=== PATIENT | male | born 1945 | race Caucasian/White ===

== ENCOUNTER 2016-08-01 17:20 | Inpatient (IN) | payer MEDICARE, OTHER ==
[~2016-08-01] VITALS: Ht 188 cm; Wt 105.7 kg
[~2016-08-01 17:20] MED LIST: AMLO5TAB2 PO; ANTI1CAP PO; ASPI81TA50 PO; CARV3.122 PO; CARV6.252 PO; CLOP75TA PO; DABI150C PO; FERR325T20 PO; FURO40TA6 PO; GABA300C10 PO; GLUC1500 PO; HYDR1POW19 PO; HYDR25TA6 PO; ISOS30TA8 PO; LISI40TA PO; NIAC500C3 PO; POTA20TA14 PO; PRAV80TA2 PO; RIVA20TA PO; [UNRECOGNIZED DRUG - OTHER] PO
[2016-08-01] MEDS ORDERED: ASPI-515 PO (17:38)
[2016-08-01] MEDS ORDERED: LORazepam 2 MG/ML, 1ML ONE (17:47)
[2016-08-01] MEDS ORDERED: LORazepam 2 MG/ML, 1ML IVPush ONE (18:00)
[2016-08-01 19:21] LABS: BLOOD UREA NITROGEN 44 mg/dL (7-18)
[2016-08-01 19:29] LABS: ABG COLLECTION SITE RIGHT RADIAL; COLLATERAL CIRCULATION TESTING NORMAL
[2016-08-01 19:29] LABS: IS PT STATUS REG ER OR PRE ER? YES
[2016-08-01] MEDS ORDERED: NITROGLYCERIN OINT 2%, 1GM TP ONE ×2 (19:30→19:33)
[2016-08-01] MEDS ORDERED: ONDANSETRON 2MG/ML, 2ML ONE (19:56)
[2016-08-01] MEDS ORDERED: MORPHINE SULFATE 4 MG/ML, 1ML ONE (19:56)
[2016-08-01] MEDS ORDERED: ONDANSETRON 2MG/ML, 2ML IVPush ONE (20:00)
[2016-08-01] MEDS ORDERED: MORPHINE SULFATE 4 MG/ML, 1ML IVPush PRN (20:00)
[2016-08-01] MEDS ORDERED: SODIUM CHLORIDE FLUSH 10ML SYR IVF PRN (20:30)
[2016-08-01] MEDS ORDERED: ACETAMINOPHEN 325 MG TABLET PO PRN (23:00)
[2016-08-01] MEDS ORDERED: ONDANSETRON 2MG/ML, 2ML IVP PRN (23:00)
[2016-08-01] MEDS ORDERED: BISACODYL 10 MG SUPP PR PRN (23:00)
[2016-08-01] MEDS ORDERED: methylPREDNISolone SOD SUCC 125 MG/2 ML ONE (23:15)
[2016-08-01] MEDS: methylPREDNISolone SOD SUCC 125 MG/2 ML IVPush SCH (23:22)
[2016-08-01] MEDS ORDERED: MAGNESIUM SULFATE PMX 2GM/50ML 50 ML IV ONE (23:30)
[2016-08-01] MEDS ORDERED: PHARMACY MAY ADJ FOR RENAL FX MC PRN (23:30)
[2016-08-01 23:37] LABS: IS PT STATUS REG ER OR PRE ER? YES
[2016-08-02] MEDS: NICOTINE 21 MG/24 HR PATCH.TD24 TD SCH ×2 (01:07→20:50)
[2016-08-02] MEDS ORDERED: ALBUTEROL/IPRATROPIUM 2.5MG/0.5MG, 3 ML NPPB PRN (01:30)
[2016-08-02 02:11] LABS: ABG COLLECTION SITE RIGHT BRACHIAL
[2016-08-02 05:12] LABS: ABG COLLECTION SITE LEFT RADIAL; COLLATERAL CIRCULATION TESTING NORMAL
[2016-08-02 05:23] LABS: BLOOD UREA NITROGEN 46 mg/dL (7-18)
[2016-08-02 05:29] LABS: ASPARTATE AMINO TRANSFERASE 90 U/L (15-37)
[2016-08-02] MEDS ORDERED: methylPREDNISolone SOD SUCC 125 MG/2 ML ONE (05:37)
[2016-08-02] MEDS: methylPREDNISolone SOD SUCC 125 MG/2 ML IVPush SCH ×4 (05:40→23:31)
[2016-08-02] MEDS ORDERED: HYDROcodone/APAP 5/325 TABLET ONE (05:46)
[2016-08-02] MEDS: HYDROcodone/APAP 5/325 TABLET PO PRN ×3 (05:48→17:15)
[2016-08-02 05:55] LABS: ANISOCYTOSIS 1+
[2016-08-02 06:00] LABS: POIKILOCYTOSIS 1+; SCHISTOCYTES 1+
[2016-08-02 06:01] LABS: OVALOCYTES 1+
[2016-08-02 06:02] LABS: IS PT STATUS REG ER OR PRE ER? YES
[2016-08-02 08:39] VITALS: BP 116/66
[2016-08-02] MEDS ORDERED: DOCUSATE 100 MG CAPSULE PO PRN (09:00)
[2016-08-02] MEDS ORDERED: POLYETHYLENE GLYCOL 17 GM PACKET PO PRN (09:00)
[2016-08-02] MEDS ORDERED: FUROSEMIDE 40 MG TABLET PO SCH (10:00)
[2016-08-02] MEDS ORDERED: MORPHINE SULFATE 4 MG/ML, 1ML IVPush PRN ×5 (10:00→14:00)
[2016-08-02] MEDS: ALBUTEROL/IPRATROPIUM 2.5MG/0.5MG, 3 ML NPPB SCH ×3 (11:00→18:56)
[2016-08-02] MEDS: GABAPENTIN 300 MG CAPSULE PO SCH ×3 (11:26→20:50)
[2016-08-02] MEDS: ASPIRIN 81 MG TABLET EC PO SCH (11:26)
[2016-08-02] MEDS: CARVEDILOL 6.25 MG TABLET PO SCH ×2 (11:26→20:50)
[2016-08-02] MEDS: INSULIN ASPART 100 UNITS/ML, PEN SQ-INSULIN SCH ×3 (12:31→20:49)
[2016-08-02 13:00] VITALS: BP 126/81
[2016-08-02 13:37] VITALS: BP 131/61
[2016-08-02] MEDS ORDERED: SODIUM POLYSTYRENE SULFONATE ORAL SUSP PO ONE (15:30)
[2016-08-02 16:32] LABS: BLOOD UREA NITROGEN 48 mg/dL (7-18)
[2016-08-02] MEDS ORDERED: RIVAROXABAN 15 MG TABLET PO SCH (17:00)
[2016-08-02 19:30] VITALS: BP 141/69
[2016-08-02] MEDS: FUROSEMIDE 20 MG/2 ML IV SCH (20:48)
[2016-08-03 01:30] VITALS: BP 126/65
[2016-08-03] MEDS: methylPREDNISolone SOD SUCC 125 MG/2 ML IVPush SCH ×2 (05:51→11:19)
[2016-08-03 06:19] LABS: ASPARTATE AMINO TRANSFERASE 21 U/L (15-37); BLOOD UREA NITROGEN 54 mg/dL (7-18)
[2016-08-03 06:26] LABS: IS PT STATUS REG ER OR PRE ER? NO
[2016-08-03 06:53] LABS: ANISOCYTOSIS 1+
[2016-08-03 06:54] LABS: ACANTHOCYTES 1+; OVALOCYTES 1+; POIKILOCYTOSIS 1+
[2016-08-03] MEDS: ALBUTEROL/IPRATROPIUM 2.5MG/0.5MG, 3 ML NPPB SCH ×3 (07:10→15:10)
[2016-08-03 07:55] VITALS: BP 154/69
[2016-08-03] MEDS ORDERED: INSULIN DETEMIR 100 UNITS/ML, PEN SQ-INSULIN SCH (08:00)
[2016-08-03] MEDS: INSULIN ASPART 100 UNITS/ML, PEN SQ-INSULIN SCH ×2 (08:13→11:14)
[2016-08-03] MEDS: FUROSEMIDE 20 MG/2 ML IV SCH (08:13)
[2016-08-03] MEDS: GABAPENTIN 300 MG CAPSULE PO SCH (08:14)
[2016-08-03] MEDS: ASPIRIN 81 MG TABLET EC PO SCH (08:14)
[2016-08-03] MEDS: CARVEDILOL 6.25 MG TABLET PO SCH (08:14)
[2016-08-03] MEDS ORDERED: REGADENOSON 0.4 MG/5 ML SYRINGE ONE (08:21)
[2016-08-03 13:41] VITALS: BP 149/76
[2016-08-03] MEDS ORDERED: RIVA15TA PO (14:25)
[2016-08-03] MEDS ORDERED: HYDR-3240 PO (16:38)
[2016-08-03] MEDS ORDERED: PRED20TA PO (17:57)
== END 2016-08-03 17:00 | disposition home or self-care (01) | DRG 291 ==
LOC: ED 18:41 → EDIP 20:23 → 5SO 08-02 08:23 → DCLOUNGE 08-03 16:35
PROVIDERS: ADMIT Internal Medicine; ATTEND Internal Medicine
PROC: 5A09457 Assistance with Respiratory Ventilation, 24-96 Consecutive Hours, Continuous Positive Airway Pressure (ICD-10-PCS; principal; 2016-08-01)
DX: I13.0 Hypertensive heart and chronic kidney disease with heart failure and stage 1 through stage 4 chronic kidney disease, or unspecified chronic kidney disease (principal); J96.01 Acute respiratory failure with hypoxia; I50.21 Acute systolic (congestive) heart failure; J18.9 Pneumonia, unspecified organism; J44.1 Chronic obstructive pulmonary disease with (acute) exacerbation; E87.2 Acidosis; D68.69 Other thrombophilia; N18.4 Chronic kidney disease, stage 4 (severe); E44.1 Mild protein-calorie malnutrition; J44.0 Chronic obstructive pulmonary disease with (acute) lower respiratory infection; R17 Unspecified jaundice; D69.6 Thrombocytopenia, unspecified; E11.21 Type 2 diabetes mellitus with diabetic nephropathy; E11.22 Type 2 diabetes mellitus with diabetic chronic kidney disease; E11.65 Type 2 diabetes mellitus with hyperglycemia; Z68.29 Body mass index [BMI] 29.0-29.9, adult; E78.5 Hyperlipidemia, unspecified; I25.10 Atherosclerotic heart disease of native coronary artery without angina pectoris; I25.5 Ischemic cardiomyopathy; I34.0 Nonrheumatic mitral (valve) insufficiency; I35.0 Nonrheumatic aortic (valve) stenosis; E11.51 Type 2 diabetes mellitus with diabetic peripheral angiopathy without gangrene; I48.2 Chronic atrial fibrillation; K21.9 Gastro-esophageal reflux disease without esophagitis; W01.0XXA Fall on same level from slipping, tripping and stumbling without subsequent striking against object, initial encounter; I25.2 Old myocardial infarction; Y93.89 Activity, other specified; Y92.89 Other specified places as the place of occurrence of the external cause; Z79.01 Long term (current) use of anticoagulants; Z90.49 Acquired absence of other specified parts of digestive tract; Z98.52 Vasectomy status; Z88.8 Allergy status to other drugs, medicaments and biological substances; Z87.891 Personal history of nicotine dependence; I70.219 Atherosclerosis of native arteries of extremities with intermittent claudication, unspecified extremity; D64.9 Anemia, unspecified; N50.1 Vascular disorders of male genital organs; T45.515A Adverse effect of anticoagulants, initial encounter
CPT/HCPCS: 36415; 36600; 71010; 71250; 72128; 76770; 78452; 80048; 80053; 80076; 82040; 82306; 82550; 82553; 82803; 82962; 83735; 83880; 83935; 84100; 84300; 84484; 85025; 85610; 85730; 93005; 93017; 93306; 93970; 94640; J1815; J2405; J2785; J7620; A9502; C9898; J1940; J2060; J2930; J3475

== ENCOUNTER → 2016-12-15 | Outpatient (CLI) | payer MEDICARE, OTHER ==
[~2016-12-15] MED LIST changes: +ASPI-515 PO; +FERR325T18 PO; -FERR325T20 PO; +HYDR-3240 PO; +PRED20TA PO; +RIVA15TA PO
[2016-12-15 13:21] LABS: HEMATOCRIT 36.5 % (39.2-51.8); HEMOGLOBIN 12.1 g/dL (13.7-18.0); WHITE BLOOD COUNT 6.7 x10^3/uL (3.4-10)
[2016-12-15 13:22] LABS: DIFF TOTAL CELLS COUNTED 100 CELL DIFF
[2016-12-15 13:50] LABS: ANISOCYTOSIS 1+; POIKILOCYTOSIS 1+; VERIFY COUNTS? YES
== END | disposition home or self-care (01) ==
LOC: CFH 07:34
PROVIDERS: ATTEND Nurse Practitioner Family
DX: I25.10 Atherosclerotic heart disease of native coronary artery without angina pectoris (principal); I10 Essential (primary) hypertension; I70.203 Unspecified atherosclerosis of native arteries of extremities, bilateral legs; I48.0 Paroxysmal atrial fibrillation
CPT/HCPCS: 36415; 85025

== ENCOUNTER 2017-03-05 15:04 | Inpatient (IN) | payer MEDICARE, OTHER ==
[~2017-03-05] VITALS: Ht 188 cm; Wt 92.4 kg
[2017-03-05 15:50] LABS: HEMATOCRIT 29.5 % (39.2-51.8); HEMOGLOBIN 9.6 g/dL (13.7-18.0); WHITE BLOOD COUNT 10.5 x10^3/uL (3.4-10)
[2017-03-05 15:58] LABS: BLOOD UREA NITROGEN 55 mg/dL (7-18)
[2017-03-05 16:02] LABS: IS PT STATUS REG ER OR PRE ER? YES
[2017-03-05] MEDS ORDERED: POTA20TA14 PO (16:14)
[2017-03-05] MEDS ORDERED: FUROSEMIDE 40 MG/4 ML IV ONE (17:30)
[2017-03-05] MEDS ORDERED: AZITHROMYCIN 500 MG in SODIUM CHLORIDE 0.9% 250 ML IV ONE (17:30)
[2017-03-05] MEDS ORDERED: CEFTRIAXONE PMX 1GM/50ML 50 ML IV ONE (17:30)
[2017-03-05] MEDS ORDERED: CEFTRIAXONE PMX 1GM/50ML 50 ML ONE (17:31)
[2017-03-05] MEDS ORDERED: FUROSEMIDE 40 MG/4 ML ONE (17:31)
[2017-03-05 17:52] LABS: RAPID INFLUENZA A Negative (Negative); RAPID INFLUENZA B Negative (Negative)
[2017-03-05] MEDS: CEFTRIAXONE PMX 1GM/50ML 50 ML IV SCH (19:25)
[2017-03-05] MEDS: AZITHROMYCIN 500 MG in SODIUM CHLORIDE 0.9% 250 ML IV SCH (19:26)
[2017-03-05] MEDS ORDERED: methylPREDNISolone SOD SUCC 125 MG/2 ML ONE (19:27)
[2017-03-05] MEDS ORDERED: GUAIFENESIN/DM 200-20MG, 10ML UDC PO PRN (19:30)
[2017-03-05] MEDS ORDERED: BISACODYL 10 MG SUPP PR PRN (19:30)
[2017-03-05] MEDS ORDERED: MAGNESIUM SULFATE PMX 2GM/50ML 50 ML IV ONE (19:30)
[2017-03-05] MEDS ORDERED: HYDROcodone/APAP 5/325 TABLET PO PRN (19:30)
[2017-03-05] MEDS ORDERED: POLYETHYLENE GLYCOL 17 GM PACKET PO PRN (19:30)
[2017-03-05] MEDS ORDERED: hydrALAzine 20 MG/ML, 1ML IVPush PRN (19:30)
[2017-03-05] MEDS ORDERED: ONDANSETRON 2MG/ML, 2ML IVPush PRN (19:30)
[2017-03-05] MEDS ORDERED: methylPREDNISolone SOD SUCC 125 MG/2 ML IVPush ONE (19:30)
[2017-03-05] MEDS ORDERED: ACETAMINOPHEN 325 MG TABLET PO PRN (19:30)
[2017-03-05] MEDS ORDERED: TEMPLATE NON-FORMULARY MED. (Glucosamine Hcl** 1,500 MG) PO SCH (21:00)
[2017-03-05] MEDS: methylPREDNISolone SOD SUCC 125 MG/2 ML IVPush SCH (22:15)
[2017-03-05] MEDS: SODIUM CHLORIDE FLUSH 10ML SYR IVF SCH (22:18)
[2017-03-05] MEDS: NICOTINE 21 MG/24 HR PATCH.TD24 TD SCH (22:18)
[2017-03-05] MEDS: CARVEDILOL 6.25 MG TABLET PO SCH (22:18)
[2017-03-05] MEDS: GABAPENTIN 300 MG CAPSULE PO SCH (22:19)
[2017-03-05] MEDS: AMLODIPINE 5 MG TABLET PO SCH (22:19)
[2017-03-05 22:33] LABS: IS PT STATUS REG ER OR PRE ER? NO
[2017-03-05 23:58] VITALS: BP 136/72
[2017-03-06] MEDS: methylPREDNISolone SOD SUCC 125 MG/2 ML IVPush SCH ×4 (01:30→20:03)
[2017-03-06 01:41] VITALS: BP 110/58
[2017-03-06 04:07] LABS: ASPARTATE AMINO TRANSFERASE 7 U/L (15-37); BLOOD UREA NITROGEN 60 mg/dL (7-18)
[2017-03-06 04:09] LABS: HEMATOCRIT 26.6 % (39.2-51.8); HEMOGLOBIN 8.8 g/dL (13.7-18.0); WHITE BLOOD COUNT 7.1 x10^3/uL (3.4-10)
[2017-03-06 04:10] LABS: IS PT STATUS REG ER OR PRE ER? NO
[2017-03-06 04:37] LABS: ACANTHOCYTES 1+; ANISOCYTOSIS 1+; OVALOCYTES 1+; POIKILOCYTOSIS 1+
[2017-03-06 07:20] VITALS: BP 123/67
[2017-03-06] MEDS ORDERED: FUROSEMIDE 20 MG/2 ML IV SCH (07:30)
[2017-03-06] MEDS: LISINOPRIL 20 MG TABLET PO SCH (09:00)
[2017-03-06] MEDS: SENNA/DOCUSATE TABLET PO SCH (09:00)
[2017-03-06] MEDS: MULTIVITAMINS/MINERALS TABLET PO SCH (09:00)
[2017-03-06] MEDS: AMLODIPINE 5 MG TABLET PO SCH ×2 (09:00→20:08)
[2017-03-06] MEDS: CARVEDILOL 6.25 MG TABLET PO SCH ×2 (09:00→20:07)
[2017-03-06] MEDS: GABAPENTIN 300 MG CAPSULE PO SCH ×3 (09:00→20:07)
[2017-03-06] MEDS: RIVAROXABAN 15 MG TABLET PO SCH (09:00)
[2017-03-06] MEDS: HYDROCHLOROTHIAZIDE 25 MG TABLET PO SCH (09:00)
[2017-03-06] MEDS: ASPIRIN 81 MG TABLET EC PO SCH (09:00)
[2017-03-06] MEDS: SODIUM CHLORIDE FLUSH 10ML SYR IVF SCH ×2 (09:00→20:07)
[2017-03-06 14:30] VITALS: BP 113/60
[2017-03-06] MEDS: INSULIN ASPART 100 UNITS/ML, PEN SQ-INSULIN SCH ×2 (16:00→20:24)
[2017-03-06] MEDS: FUROSEMIDE 20 MG TABLET PO SCH (17:00)
[2017-03-06] MEDS: AZITHROMYCIN 500 MG in SODIUM CHLORIDE 0.9% 250 ML IV SCH (20:02)
[2017-03-06] MEDS: NICOTINE 21 MG/24 HR PATCH.TD24 TD SCH (20:08)
[2017-03-06 20:13] VITALS: BP 102/56
[2017-03-06] MEDS: CEFTRIAXONE PMX 1GM/50ML 50 ML IV SCH (21:22)
[2017-03-07] MEDS: methylPREDNISolone SOD SUCC 125 MG/2 ML IVPush SCH ×2 (01:49→09:46)
[2017-03-07 02:00] VITALS: BP 90/53
[2017-03-07 08:20] VITALS: BP 99/51
[2017-03-07 08:23] LABS: HEMATOCRIT 26.8 % (39.2-51.8); HEMOGLOBIN 8.8 g/dL (13.7-18.0); WHITE BLOOD COUNT 10.7 x10^3/uL (3.4-10)
[2017-03-07 08:24] LABS: ASPARTATE AMINO TRANSFERASE 6 U/L (15-37); BLOOD UREA NITROGEN 75 mg/dL (7-18)
[2017-03-07 09:16] LABS: ANISOCYTOSIS 1+; OVALOCYTES 1+; POIKILOCYTOSIS 1+; SCHISTOCYTES 1+
[2017-03-07 09:18] LABS: ACANTHOCYTES 1+; ECHINOCYTES 1+; POLYCHROMASIA 1+
[2017-03-07] MEDS: INSULIN ASPART 100 UNITS/ML, PEN SQ-INSULIN SCH ×4 (09:45→20:37)
[2017-03-07] MEDS: SODIUM CHLORIDE FLUSH 10ML SYR IVF SCH ×2 (09:46→20:38)
[2017-03-07] MEDS: FUROSEMIDE 20 MG TABLET PO SCH ×2 (09:46→17:00)
[2017-03-07] MEDS: ASPIRIN 81 MG TABLET EC PO SCH (09:47)
[2017-03-07] MEDS: CARVEDILOL 6.25 MG TABLET PO SCH ×3 (09:47→20:56)
[2017-03-07] MEDS: HYDROCHLOROTHIAZIDE 25 MG TABLET PO SCH (09:47)
[2017-03-07] MEDS: SENNA/DOCUSATE TABLET PO SCH (09:48)
[2017-03-07] MEDS: MULTIVITAMINS/MINERALS TABLET PO SCH (09:48)
[2017-03-07] MEDS: RIVAROXABAN 15 MG TABLET PO SCH (09:48)
[2017-03-07] MEDS: AMLODIPINE 5 MG TABLET PO SCH ×3 (09:48→20:56)
[2017-03-07] MEDS: LISINOPRIL 20 MG TABLET PO SCH (09:48)
[2017-03-07] MEDS: GABAPENTIN 300 MG CAPSULE PO SCH ×3 (09:48→20:38)
[2017-03-07 12:38] LABS: OCCBLD OBC PASS
[2017-03-07 14:30] VITALS: BP 97/60
[2017-03-07 19:25] VITALS: BP 91/48
[2017-03-07] MEDS: AZITHROMYCIN 500 MG in SODIUM CHLORIDE 0.9% 250 ML IV SCH (19:33)
[2017-03-07] MEDS: NICOTINE 21 MG/24 HR PATCH.TD24 TD SCH (20:37)
[2017-03-07] MEDS: CEFTRIAXONE PMX 1GM/50ML 50 ML IV SCH (20:38)
[2017-03-07 20:55] VITALS: BP 93/53
[2017-03-08 00:51] VITALS: BP 107/92
[2017-03-08 05:09] LABS: HEMATOCRIT 23.8 % (39.2-51.8); WHITE BLOOD COUNT 10.6 x10^3/uL (3.4-10)
[2017-03-08 05:34] LABS: BLOOD UREA NITROGEN 92 mg/dL (7-18)
[2017-03-08 08:02] VITALS: BP 121/61
[2017-03-08] MEDS: SENNA/DOCUSATE TABLET PO SCH (09:00)
[2017-03-08] MEDS: RIVAROXABAN 15 MG TABLET PO SCH (09:02)
[2017-03-08] MEDS: INSULIN ASPART 100 UNITS/ML, PEN SQ-INSULIN SCH ×2 (09:02→11:39)
[2017-03-08] MEDS: AMLODIPINE 5 MG TABLET PO SCH (09:04)
[2017-03-08] MEDS: GABAPENTIN 300 MG CAPSULE PO SCH (09:04)
[2017-03-08] MEDS: MULTIVITAMINS/MINERALS TABLET PO SCH (09:04)
[2017-03-08] MEDS: LISINOPRIL 20 MG TABLET PO SCH (09:04)
[2017-03-08] MEDS: CARVEDILOL 6.25 MG TABLET PO SCH (09:05)
[2017-03-08] MEDS: HYDROCHLOROTHIAZIDE 25 MG TABLET PO SCH (09:05)
[2017-03-08] MEDS: ASPIRIN 81 MG TABLET EC PO SCH (09:05)
[2017-03-08] MEDS: FUROSEMIDE 20 MG TABLET PO SCH (09:06)
[2017-03-08] MEDS: SODIUM CHLORIDE FLUSH 10ML SYR IVF SCH (09:11)
[2017-03-08] MEDS ORDERED: PRED20TA PO (12:38)
[2017-03-08 13:46] VITALS: BP 119/59
== END 2017-03-08 15:00 | disposition home or self-care (01) | DRG 291 ==
LOC: ED 18:08 → EDIP 18:30 → 4WST 20:58 → DCLOUNGE 03-08 14:40
PROVIDERS: ADMIT Internal Medicine; ATTEND Internal Medicine
DX: I13.0 Hypertensive heart and chronic kidney disease with heart failure and stage 1 through stage 4 chronic kidney disease, or unspecified chronic kidney disease (principal); I50.43 Acute on chronic combined systolic (congestive) and diastolic (congestive) heart failure; J96.01 Acute respiratory failure with hypoxia; D68.69 Other thrombophilia; E11.40 Type 2 diabetes mellitus with diabetic neuropathy, unspecified; E11.22 Type 2 diabetes mellitus with diabetic chronic kidney disease; N18.3 Chronic kidney disease, stage 3 (moderate); E11.51 Type 2 diabetes mellitus with diabetic peripheral angiopathy without gangrene; J44.1 Chronic obstructive pulmonary disease with (acute) exacerbation; E44.1 Mild protein-calorie malnutrition; I38 Endocarditis, valve unspecified; D64.9 Anemia, unspecified; E78.5 Hyperlipidemia, unspecified; I25.10 Atherosclerotic heart disease of native coronary artery without angina pectoris; E87.5 Hyperkalemia; I07.1 Rheumatic tricuspid insufficiency; I25.2 Old myocardial infarction; I48.2 Chronic atrial fibrillation; Z79.01 Long term (current) use of anticoagulants; Z79.84 Long term (current) use of oral hypoglycemic drugs; Z87.891 Personal history of nicotine dependence; J20.8 Acute bronchitis due to other specified organisms; Z68.26 Body mass index [BMI] 26.0-26.9, adult
CPT/HCPCS: 36415; 71020; 80048; 80053; 81003; 82040; 82272; 82962; 83036; 83605; 83880; 84145; 84484; 85025; 87040; 87070; 87205; 87400; 93005; 93306; 96365; 96366; 96368; 96375; J0456; J0696; J1815; J1940; J2930; J3475; J7050; J7512

== ENCOUNTER → 2017-11-23 | Outpatient (CLI) | payer MEDICARE, OTHER ==
[~2017-11-23] MED LIST changes: -GLUC1500 PO; +GLUC15006 PO
[2017-11-23 12:50] LABS: ALBUMIN 3.7 g/dL (3.4-5.0); ANION GAP 8 mmol/L (5-15); CALCIUM 8.6 mg/dL (8.5-10.1); CHLORIDE 110 mmol/L (98-107)
[2017-11-23 12:54] LABS: ALANINE AMINOTRANSFERASE 15 U/L (12-78); ALKALINE PHOSPHATASE 103 U/L (45-117); BILIRUBIN,TOTAL 1.2 mg/dL (0.2-1.0); CHOL/HDL RATIO 2.1; CHOLESTEROL, TOTAL 104 mg/dL (140-239); CREATININE 1.45 mg/dL (0.7-1.3); HDL CHOL % 47 % (26-37); HDL CHOLESTEROL (DIRECT) 49 mg/dL (40-60); LDL CHOLESTEROL,CALCULATED 46 mg/dL (54-169); LDL/HDL RATIO 0.9 (0.5-3.0); TOTAL PROTEIN 6.5 g/dL (6.4-8.2); TRIGLYCERIDES 47 mg/dL (50-200); VLDL CHOLESTEROL 9 mg/dL (0-25)
== END | disposition home or self-care (01) ==
LOC: CFH 10:08
PROVIDERS: ATTEND Internal Medicine Cardiovascular Disease
DX: E11.21 Type 2 diabetes mellitus with diabetic nephropathy (principal); I11.0 Hypertensive heart disease with heart failure; I50.9 Heart failure, unspecified; I73.9 Peripheral vascular disease, unspecified; D64.9 Anemia, unspecified; J44.9 Chronic obstructive pulmonary disease, unspecified; Z87.891 Personal history of nicotine dependence
CPT/HCPCS: 36415; 80053; 80061

== ENCOUNTER 2018-07-11 14:18 | Inpatient (IN) | payer MEDICARE ==
[~2018-07-11] VITALS: Ht 188 cm; Wt 87.0 kg
[~2018-07-11 14:18] MED LIST changes: +AMLO-150 PO; -AMLO5TAB2 PO
--- NOTE | 2018-07-11 14:40 | NUR ---
PT TO ED FOR SOB WHILE LYING DOWN AND INCREASED LEG SWELLING DURING RECENT ROAD TRIP. PT THINKS HE'S IN AFIB AND IS VERY COLD. NO FEVER NOTED. CONNECTED TO ALL MONITORS. VSS. EDMD ASSESSMENT COMPLETE. AWAITING ORDERS.
[2018-07-11] MEDS ORDERED: CEFTRIAXONE PMX 1GM/50ML 50 ML IVPB ONE (15:00)
[2018-07-11] MEDS ORDERED: AZITHROMYCIN 500 MG in SODIUM CHLORIDE 0.9% 250 ML IVPB ONE (15:00)
--- NOTE | 2018-07-11 15:20 | NUR ---
UNABLE TO OBTAIN BLOOD FOR LAB/MEDS YET. TO USE ULTRASOUND SHORTLY
[2018-07-11] MEDS ORDERED: CEFTRIAXONE PMX 1GM/50ML 50 ML ONE (15:25)
[2018-07-11 15:33] LABS: INTERNATIONAL NORMALIZED RATIO 4.06 (0.93-1.1); PROTHROMBIN TIME 40.4 Seconds (9.6-11.5)
[2018-07-11 15:34] LABS: ALBUMIN 3.7 g/dL (3.4-5.0); ANION GAP 6 mmol/L (5-15); CALCIUM 8.4 mg/dL (8.5-10.1); CHLORIDE 105 mmol/L (98-107); CREATININE 1.55 mg/dL (0.7-1.3)
[2018-07-11 15:38] LABS: TROPONIN I 0.036 ng/mL (0.000-0.045)
[2018-07-11 15:44] LABS: MEAN CORPUSCULAR HEMOGLOBIN 28.5 pg (27.5-34.5); MEAN CORPUSCULAR HGB CONC 32.5 g/dL (33.2-36.2); MEAN CORPUSCULAR VOLUME 87.6 fL (81-97); MEAN PLATELET VOLUME 11.6 fL (7.4-10.4); PLATELET COUNT 122 x10^3/uL (130-400); RED BLOOD COUNT 5.03 x10^6/uL (4.38-5.82); RED CELL DISTRIBUTION WIDTH 21.1 % (9.4-14.8)
[2018-07-11 16:01] LABS: MD YES
--- NOTE | 2018-07-11 16:02 | NUR ---
2ND BLOOD CULTURE OBTAINED W/ PIV PLACEMENT AT [id number]
[2018-07-11 16:04] LABS: BAND#(MANUAL) 3.74 x10^3/uL; BANDS%(MANUAL) 18 % (0-7); LYMPH#(MANUAL) 0.83 x10^3/uL (1-3.4); LYMPHS% (MANUAL) 4 % (22-44); METAMYELOCYTES# (MANUAL) 0.21 x10^3/uL (0-0); METAMYELOCYTES% (MANUAL) 1 % (0-1); MONOS#(MANUAL) 1.25 x10^3/uL (0.3-2.7); MONOS% (MANUAL) 6 % (2-9); SEG#(MANUAL) 14.77 x10^3/uL (1.8-6.8); SEGS% (MANUAL) 71 % (42-75)
[2018-07-11 16:05] LABS: ANISOCYTOSIS 1+
[2018-07-11 16:06] LABS: OVALOCYTES 1+
[2018-07-11 16:07] LABS: <PLATELET ESTIMATE> DECREASED; <PLT MORPHOLOGY> NORMAL PLT MORPH; ECHINOCYTES 1+; SCHISTOCYTES 1+
[2018-07-11] MEDS ORDERED: WARF5TAB PO (16:21)
[2018-07-11] MEDS ORDERED: WARF7.5T PO (16:21)
--- NOTE | 2018-07-11 16:31 | NUR ---
ABX ADMINISTERED PER [facility] COMPLETED WELL: (TAKES 5MG OF COUMADIN ON WEDNESDAY & 7.5MG EVERY OTHER DAY-TAKES DOSE AT NIGHT. LAST DOSE 07/10. ALSO TAKES LASIX AND POTASSIUM EVERY THIRD DAY (LAST DOSE 07/07/18)-ADDITIONAL MED RECC SELF EXPLANITORY. POX 88-90%-PLACED ON 2L NC CONTINUES TO SPIT UP COPIOUS AMOUNT OF FROTHY SPUTUM SLIGHLY TINGED UPDATED ON POC REMAIN ON DISTRICT BRANCH MANAGER AT BEDSIDE CALL NAZARIO IN HAND/SIDE RAILS UP
[2018-07-11] MEDS ORDERED: hydrALAzine 20 MG/ML, 1ML IVPush PRN (17:00)
[2018-07-11] MEDS ORDERED: GUAIFENESIN/DM 200-20MG, 10ML UDC PO PRN (17:00)
[2018-07-11] MEDS ORDERED: HYDROcodone/APAP 5/325 TABLET PO PRN (17:00)
[2018-07-11] MEDS ORDERED: LABETALOL 5 MG/ML SYRINGE IVPush PRN (17:00)
[2018-07-11] MEDS ORDERED: GUAIFENESIN/COD200MG-20MG/10ML LIQUID PO PRN (17:00)
[2018-07-11] MEDS ORDERED: ZOLPIDEM 5MG TABLET PO PRN (17:00)
[2018-07-11] MEDS ORDERED: ONDANSETRON 2MG/ML, 2ML IVPush PRN (17:00)
[2018-07-11] MEDS ORDERED: BISACODYL 10 MG SUPP PR PRN (17:00)
[2018-07-11] MEDS ORDERED: DOCUSATE 100 MG CAPSULE PO PRN (17:00)
[2018-07-11] MEDS ORDERED: POLYETHYLENE GLYCOL 17 GM PACKET PO PRN (17:00)
[2018-07-11] MEDS ORDERED: ONDANSETRON ODT 4 MG PO PRN (17:00)
[2018-07-11] MEDS ORDERED: ACETAMINOPHEN 325 MG TABLET PO PRN (17:00)
[2018-07-11] MEDS ORDERED: SODIUM CHLORIDE FLUSH 10ML SYR IVF PRN (17:00)
--- NOTE | 2018-07-11 17:36 | NUR ---
POX 91-94%-ON 2L NC CONTINUES TO SPIT UP COPIOUS AMOUNT OF FROTHY SPUTUM SLIGHLY TINGED UPDATED ON POC-TO HOPEF[facility]Y [facility] INPATIENT ROOM SHORTLY REMAINS ON DIRECTOR OF REGULATORY AFFAIRS AT BEDSIDE CALL NAZARIO IN HAND/SIDE RAILS UP
[2018-07-11 17:43] LABS: FREE T4 (FREE THYROXINE) 1.35 ng/dL (0.76-1.46); TROPONIN I 0.038 ng/mL (0.000-0.045)
[2018-07-11 17:47] LABS: HEMOGLOBIN A1C 6.9 % (4.2-6.3)
[2018-07-11 17:49] LABS: THYROID STIMULATING HORMONE 0.514 mIU/L (0.358-3.740)
--- NOTE | 2018-07-11 18:45 | NUR ---
200ML OF DARK URINE VOIDED. CHARTED IN I/O TAB
[2018-07-11 19:05] VITALS: BP 104/61
[2018-07-11] MEDS: INSULIN LISPRO 100 UNITS/ML, PEN SQ-INSULIN SCH (20:36)
[2018-07-11] MEDS: CARVEDILOL 3.125 MG TABLET PO SCH (20:56)
[2018-07-11] MEDS: AMLODIPINE 5 MG TABLET PO SCH (20:56)
[2018-07-11] MEDS: methylPREDNISolone SOD SUCC 125 MG/2 ML IVPush SCH (20:56)
[2018-07-11] MEDS: GABAPENTIN 300 MG CAPSULE PO SCH (20:56)
[2018-07-11] MEDS ORDERED: TEMPLATE NON-FORMULARY MED. (Glucosamine Hcl** 1,500 MG) PO SCH (21:00)
[2018-07-12] MEDS ORDERED: ALBUTEROL SULFATE 2.5 MG/3 ML NPPB PRN
[2018-07-12 00:13] LABS: TROPONIN I 0.039 ng/mL (0.000-0.045)
[2018-07-12 00:20] VITALS: BP 116/62
[2018-07-12] MEDS: CEFTRIAXONE PMX 1GM/50ML 50 ML IV SCH ×2 (03:34→15:11)
[2018-07-12] MEDS: methylPREDNISolone SOD SUCC 125 MG/2 ML IVPush SCH ×4 (03:34→21:49)
[2018-07-12] MEDS: PANTOPROZOLE 40MG TABLET PO SCH (05:23)
[2018-07-12 05:53] LABS: ANION GAP 8 mmol/L (5-15); CALCIUM 7.7 mg/dL (8.5-10.1); CHLORIDE 107 mmol/L (98-107)
[2018-07-12 05:55] LABS: MEAN CORPUSCULAR HEMOGLOBIN 28.5 pg (27.5-34.5); MEAN CORPUSCULAR HGB CONC 33.1 g/dL (33.2-36.2); MEAN CORPUSCULAR VOLUME 86.3 fL (81-97); MEAN PLATELET VOLUME 12.3 fL (7.4-10.4); PLATELET COUNT 94 x10^3/uL (130-400); RED BLOOD COUNT 4.42 x10^6/uL (4.38-5.82); RED CELL DISTRIBUTION WIDTH 20.9 % (9.4-14.8)
[2018-07-12 05:57] LABS: CREATININE 1.46 mg/dL (0.7-1.3); HDL CHOLESTEROL (DIRECT) 36 mg/dL (40-60); TRIGLYCERIDES 40 mg/dL (50-200); VLDL CHOLESTEROL 8 mg/dL (0-25)
[2018-07-12 06:00] LABS: CHOL/HDL RATIO 1.4; CHOLESTEROL, TOTAL < 50 mg/dL (140-239); HDL CHOL % 0 % (26-37); LDL CHOLESTEROL,CALCULATED 6 mg/dL (54-169); LDL/HDL RATIO 0.2 (0.5-3.0)
[2018-07-12 06:41] LABS: MD YES
[2018-07-12 06:42] LABS: BAND#(MANUAL) 2.58 x10^3/uL; BANDS%(MANUAL) 12 % (0-7); LYMPH#(MANUAL) 0.65 x10^3/uL (1-3.4); LYMPHS% (MANUAL) 3 % (22-44); MONOS#(MANUAL) 0.65 x10^3/uL (0.3-2.7); MONOS% (MANUAL) 3 % (2-9); SEG#(MANUAL) 17.63 x10^3/uL (1.8-6.8); SEGS% (MANUAL) 82 % (42-75)
[2018-07-12 06:43] LABS: ANISOCYTOSIS 1+
[2018-07-12 06:44] LABS: ECHINOCYTES 1+; OVALOCYTES 1+; SCHISTOCYTES 1+
[2018-07-12 06:45] LABS: <PLATELET ESTIMATE> DECREASED; LARGE PLATELETS 1+
[2018-07-12 07:22] VITALS: BP 114/73
[2018-07-12] MEDS: CARVEDILOL 3.125 MG TABLET PO SCH ×2 (08:34→21:49)
[2018-07-12] MEDS: GABAPENTIN 300 MG CAPSULE PO SCH ×3 (08:42→21:49)
[2018-07-12] MEDS: AMLODIPINE 5 MG TABLET PO SCH ×2 (08:42→21:49)
[2018-07-12] MEDS: INSULIN LISPRO 100 UNITS/ML, PEN SQ-INSULIN SCH ×4 (08:43→21:50)
[2018-07-12] MEDS ORDERED: [UNRECOGNIZED DRUG - OTHER] PO SCH (09:00)
[2018-07-12 09:23] LABS: INTERNATIONAL NORMALIZED RATIO 4.63 (0.93-1.1); PROTHROMBIN TIME 45.8 Seconds (9.6-11.5)
[2018-07-12 12:32] VITALS: BP 112/51
[2018-07-12] MEDS: AZITHROMYCIN 500 MG in SODIUM CHLORIDE 0.9% 250 ML IV SCH (16:16)
[2018-07-12] MEDS: NICOTINE 21 MG/24 HR PATCH.TD24 TD SCH (16:16)
[2018-07-12 19:45] VITALS: BP 117/65
[2018-07-13 00:30] VITALS: BP 125/76
[2018-07-13] MEDS: CEFTRIAXONE PMX 1GM/50ML 50 ML IV SCH ×2 (02:38→15:50)
[2018-07-13] MEDS: methylPREDNISolone SOD SUCC 125 MG/2 ML IVPush SCH ×4 (02:45→21:08)
[2018-07-13] MEDS: PANTOPROZOLE 40MG TABLET PO SCH (05:31)
[2018-07-13 06:30] LABS: INTERNATIONAL NORMALIZED RATIO 3.11 (0.93-1.1); PROTHROMBIN TIME 31.3 Seconds (9.6-11.5)
[2018-07-13 06:39] LABS: MEAN CORPUSCULAR HEMOGLOBIN 28.5 pg (27.5-34.5); MEAN CORPUSCULAR VOLUME 86.3 fL (81-97); RED BLOOD COUNT 4.23 x10^6/uL (4.38-5.82); RED CELL DISTRIBUTION WIDTH 21.6 % (9.4-14.8)
[2018-07-13 06:41] LABS: ANION GAP 7 mmol/L (5-15); CALCIUM 8.2 mg/dL (8.5-10.1); CHLORIDE 105 mmol/L (98-107)
[2018-07-13 06:43] LABS: CREATININE 1.62 mg/dL (0.7-1.3)
[2018-07-13 07:05] LABS: MEAN PLATELET VOLUME 12.9 fL (7.4-10.4); PLATELET COUNT 102 x10^3/uL (130-400)
[2018-07-13 07:20] LABS: BASOPHILS # (AUTO) 0.06 x10^3/uL (0-0.1); BASOPHILS % (AUTO) 0 % (0-1); EOSINOPHILS % (AUTO) 0 % (1-7); LYMPHOCYTES # (AUTO) 0.28 x10^3/uL (1-3.4); LYMPHOCYTES % (AUTO) 2 % (22-44); MD SCAN; MONOCYTES # (AUTO) 0.15 x10^3/uL (0.2-0.8); MONOCYTES % (AUTO) 1 % (2-9); NEUTROPHILS # (AUTO) 13.12 x10^3/uL (1.8-6.8); NEUTROPHILS % (AUTO) 96 % (42-75)
[2018-07-13 07:55] VITALS: BP 109/67
[2018-07-13] MEDS: INSULIN LISPRO 100 UNITS/ML, PEN SQ-INSULIN SCH ×4 (07:56→21:48)
[2018-07-13] MEDS: GABAPENTIN 300 MG CAPSULE PO SCH ×3 (09:44→21:09)
[2018-07-13] MEDS: AMLODIPINE 5 MG TABLET PO SCH ×2 (09:44→21:09)
[2018-07-13] MEDS: CARVEDILOL 3.125 MG TABLET PO SCH ×2 (09:45→21:09)
[2018-07-13 13:50] VITALS: BP 116/63
[2018-07-13] MEDS: AZITHROMYCIN 500 MG in SODIUM CHLORIDE 0.9% 250 ML IV SCH (16:44)
[2018-07-13] MEDS: NICOTINE 21 MG/24 HR PATCH.TD24 TD SCH (16:45)
[2018-07-13] MEDS ORDERED: WARFARIN 2.5 MG TABLET PO-COUM ONE (18:00)
[2018-07-13 18:35] VITALS: BP 105/63
[2018-07-14 00:35] VITALS: BP 131/78
[2018-07-14] MEDS: CEFTRIAXONE PMX 1GM/50ML 50 ML IV SCH (03:28)
[2018-07-14] MEDS: methylPREDNISolone SOD SUCC 125 MG/2 ML IVPush SCH ×2 (03:28→08:23)
[2018-07-14 06:13] LABS: INTERNATIONAL NORMALIZED RATIO 2.47 (0.93-1.1)
[2018-07-14] MEDS: PANTOPROZOLE 40MG TABLET PO SCH (06:19)
[2018-07-14 06:22] LABS: CALCIUM 8.3 mg/dL (8.5-10.1); CHLORIDE 103 mmol/L (98-107)
[2018-07-14 06:25] LABS: ANION GAP 8 mmol/L (5-15); CREATININE 1.75 mg/dL (0.7-1.3)
[2018-07-14 06:37] LABS: BASOPHILS % (AUTO) 0 % (0-1); EOSINOPHILS # (AUTO) 0.07 x10^3/uL (0-0.4); EOSINOPHILS % (AUTO) 1 % (1-7); LYMPHOCYTES # (AUTO) 0.35 x10^3/uL (1-3.4); LYMPHOCYTES % (AUTO) 4 % (22-44); MD SCAN; MEAN CORPUSCULAR HEMOGLOBIN 28.8 pg (27.5-34.5); MEAN CORPUSCULAR HGB CONC 33.3 g/dL (33.2-36.2); MEAN CORPUSCULAR VOLUME 86.4 fL (81-97); MEAN PLATELET VOLUME 12.1 fL (7.4-10.4); MONOCYTES # (AUTO) 0.11 x10^3/uL (0.2-0.8); MONOCYTES % (AUTO) 1 % (2-9); NEUTROPHILS # (AUTO) 7.95 x10^3/uL (1.8-6.8); NEUTROPHILS % (AUTO) 94 % (42-75); PLATELET COUNT 105 x10^3/uL (130-400); RED CELL DISTRIBUTION WIDTH 20.2 % (9.4-14.8)
[2018-07-14] MEDS: AMLODIPINE 5 MG TABLET PO SCH (08:23)
[2018-07-14] MEDS: INSULIN LISPRO 100 UNITS/ML, PEN SQ-INSULIN SCH ×2 (08:23→11:35)
[2018-07-14] MEDS: CARVEDILOL 3.125 MG TABLET PO SCH (08:23)
[2018-07-14] MEDS: GABAPENTIN 300 MG CAPSULE PO SCH (08:23)
[2018-07-14 08:29] VITALS: BP 123/53
[2018-07-14] MEDS ORDERED: AMOXICILLIN/CLAV 875-125MG TABLET PO SCH (09:00)
[2018-07-14] MEDS ORDERED: DOXYCYCLINE 100MG TABLET PO SCH (09:00)
[2018-07-14] MEDS ORDERED: DOXY100T PO (10:23)
[2018-07-14] MEDS ORDERED: FURO40TA6 PO (10:23)
[2018-07-14] MEDS ORDERED: AMOX1TAB12 PO (10:23)
[2018-07-14] MEDS ORDERED: ALBU90AE INH (10:29)
[2018-07-14] MEDS ORDERED: GUAI-103 PO (10:29)
[2018-07-14] MEDS ORDERED: WARFARIN 5 MG TABLET PO-COUM ONE (18:00)
== END 2018-07-14 12:40 | disposition home or self-care (01) | DRG 871 ==
LOC: ED 17:09 → EDIP 17:10 → 4WST 18:43 → EDIP 18:46 → 4WST 18:51 → DCLOUNGE 07-14 12:31
PROVIDERS: ADMIT Internal Medicine; ATTEND Internal Medicine
DX: A41.9 Sepsis, unspecified organism (principal); J15.9 Unspecified bacterial pneumonia; I13.0 Hypertensive heart and chronic kidney disease with heart failure and stage 1 through stage 4 chronic kidney disease, or unspecified chronic kidney disease; J44.0 Chronic obstructive pulmonary disease with (acute) lower respiratory infection; E87.1 Hypo-osmolality and hyponatremia; I50.22 Chronic systolic (congestive) heart failure; D64.9 Anemia, unspecified; D69.6 Thrombocytopenia, unspecified; E11.21 Type 2 diabetes mellitus with diabetic nephropathy; E11.22 Type 2 diabetes mellitus with diabetic chronic kidney disease; E11.40 Type 2 diabetes mellitus with diabetic neuropathy, unspecified; E11.51 Type 2 diabetes mellitus with diabetic peripheral angiopathy without gangrene; E78.5 Hyperlipidemia, unspecified; I25.10 Atherosclerotic heart disease of native coronary artery without angina pectoris; I48.91 Unspecified atrial fibrillation; N18.3 Chronic kidney disease, stage 3 (moderate); I25.2 Old myocardial infarction; Z79.01 Long term (current) use of anticoagulants; Z90.49 Acquired absence of other specified parts of digestive tract; Z79.899 Other long term (current) drug therapy; Z83.3 Family history of diabetes mellitus; Z98.52 Vasectomy status
CPT/HCPCS: 36415; 71045; 80048; 80061; 82040; 82962; 83036; 83605; 83690; 83735; 83880; 84439; 84443; 84484; 85025; 85610; 85730; 87040; 87070; 87205; 93005; 93306; 96365; 96375; G0378; J0456; J0696; J1815; J2930; J7050

== ENCOUNTER 2018-09-19 07:56 | Outpatient (CLI) | payer MEDICARE, OTHER ==
[~2018-09-19 07:56] MED LIST changes: +ALBU90AE INH; +AMOX1TAB12 PO; +DOXY100T PO; +GUAI-103 PO; +WARF5TAB PO; +WARF7.5T PO
[2018-09-19 10:31] LABS: ALANINE AMINOTRANSFERASE 17 U/L (12-78); ALBUMIN 3.9 g/dL (3.4-5.0); ANION GAP 7 mmol/L (5-15); CALCIUM 8.6 mg/dL (8.5-10.1); CHLORIDE 110 mmol/L (98-107)
[2018-09-19 10:34] LABS: ALKALINE PHOSPHATASE 130 U/L (45-117); BILIRUBIN,TOTAL 1.1 mg/dL (0.2-1.0); CHOL/HDL RATIO 1.5; CHOLESTEROL, TOTAL 92 mg/dL (140-239); CREATININE 1.63 mg/dL (0.7-1.3); HDL CHOL % 66 % (26-37); HDL CHOLESTEROL (DIRECT) 61 mg/dL (40-60); LDL CHOLESTEROL,CALCULATED 21 mg/dL (54-169); LDL/HDL RATIO 0.3 (0.5-3.0); TOTAL PROTEIN 7.2 g/dL (6.4-8.2); TRIGLYCERIDES 50 mg/dL (50-200); VLDL CHOLESTEROL 10 mg/dL (0-25)
== END 2018-09-19 23:59 | disposition home or self-care (01) ==
LOC: CVU 07:56
PROVIDERS: ATTEND Internal Medicine Cardiovascular Disease
DX: I65.23 Occlusion and stenosis of bilateral carotid arteries (principal); I11.0 Hypertensive heart disease with heart failure; I50.21 Acute systolic (congestive) heart failure; I73.9 Peripheral vascular disease, unspecified; I25.10 Atherosclerotic heart disease of native coronary artery without angina pectoris; I48.0 Paroxysmal atrial fibrillation; D64.9 Anemia, unspecified; R29.898 Other symptoms and signs involving the musculoskeletal system; I77.3 Arterial fibromuscular dysplasia; Z87.891 Personal history of nicotine dependence; R60.0 Localized edema
CPT/HCPCS: 36415; 80053; 80061; 93880; 93970

== ENCOUNTER 2018-10-28 12:35 | Inpatient (IN) | payer MEDICARE, OTHER ==
[~2018-10-28] VITALS: Ht 188 cm; Wt 93.7 kg
[2018-11-10 05:00] VITALS: BP 131/68
== END 2018-11-10 15:42 | DRG 25 ==
LOC: ED 14:08 → EDIP 17:48 → 3NW 18:57 → CCU 11-02 15:01
PROVIDERS: ADMIT Internal Medicine; ATTEND Internal Medicine
PROC: 00B00ZX Excision of Brain, Open Approach, Diagnostic (ICD-10-PCS; principal; 2018-11-02)
PROC: 30233R1 Transfusion of Nonautologous Platelets into Peripheral Vein, Percutaneous Approach (ICD-10-PCS; 2018-11-02)
PROC: 8E09XBH Computer Assisted Procedure of Head and Neck Region, With Magnetic Resonance Imaging (ICD-10-PCS; 2018-11-02)
PROC: 03HY32Z Insertion of Monitoring Device into Upper Artery, Percutaneous Approach (ICD-10-PCS; 2018-11-02)
PROC: 00K03ZZ Map Brain, Percutaneous Approach (ICD-10-PCS; 2018-11-02)
PROC: 00H032Z Insertion of Monitoring Device into Brain, Percutaneous Approach (ICD-10-PCS; 2018-11-02)
PROC: 4A10X4G Monitoring of Central Nervous Electrical Activity, Intraoperative, External Approach (ICD-10-PCS; 2018-11-02)
PROC: 4A103BD Monitoring of Intracranial Pressure, Percutaneous Approach (ICD-10-PCS; 2018-11-02)
PROC: 00U20KZ Supplement Dura Mater with Nonautologous Tissue Substitute, Open Approach (ICD-10-PCS; 2018-11-02)
PROC: 00C00ZZ Extirpation of Matter from Brain, Open Approach (ICD-10-PCS; 2018-11-03)
DX: D32.0 Benign neoplasm of cerebral meninges (principal); G93.6 Cerebral edema; G81.91 Hemiplegia, unspecified affecting right dominant side; I13.0 Hypertensive heart and chronic kidney disease with heart failure and stage 1 through stage 4 chronic kidney disease, or unspecified chronic kidney disease; I50.22 Chronic systolic (congestive) heart failure; D68.9 Coagulation defect, unspecified; I47.1 Supraventricular tachycardia; I82.491 Acute embolism and thrombosis of other specified deep vein of right lower extremity; M84.48XA Pathological fracture, other site, initial encounter for fracture; R56.9 Unspecified convulsions; D69.6 Thrombocytopenia, unspecified; E11.22 Type 2 diabetes mellitus with diabetic chronic kidney disease; E11.40 Type 2 diabetes mellitus with diabetic neuropathy, unspecified; E11.51 Type 2 diabetes mellitus with diabetic peripheral angiopathy without gangrene; F17.200 Nicotine dependence, unspecified, uncomplicated; I48.2 Chronic atrial fibrillation; M21.371 Foot drop, right foot; I25.10 Atherosclerotic heart disease of native coronary artery without angina pectoris; J44.9 Chronic obstructive pulmonary disease, unspecified; K59.00 Constipation, unspecified; N18.3 Chronic kidney disease, stage 3 (moderate); N28.1 Cyst of kidney, acquired; N28.89 Other specified disorders of kidney and ureter; R13.10 Dysphagia, unspecified; T38.0X5A Adverse effect of glucocorticoids and synthetic analogues, initial encounter; I25.2 Old myocardial infarction; Y92.89 Other specified places as the place of occurrence of the external cause; Z79.01 Long term (current) use of anticoagulants; Z82.3 Family history of stroke; Z83.3 Family history of diabetes mellitus; Z90.49 Acquired absence of other specified parts of digestive tract
CPT/HCPCS: 36415; 70450; 70552; 70553; 71260; 74018; 74177; 80048; 80053; 80076; 80164; 82140; 82962; 83036; 83880; 84484; 85025; 85049; 85520; 85610; 85730; 86022; 86850; 86900; 87081; 88307; 88331; 88341; 88342; 88360; 93005; 93306; 95816; 99285; A9585; C1713; C1729; C9254; G0378; J0690; J1100; J1644; J1885; J1953; J2250; J2704; J3010; J3430; J3480; J3486; Q9967; A4648; C1760; C1781; J0330; J0360; J1720; J1815; J2060; J2270; J2370; J7030; J7050; P9035